=== PATIENT | male | born 1985 | race Caucasian/White ===

== ENCOUNTER 2016-07-24 13:39 | Emergency (ER) | payer OTHER ==
[~2016-07-24] VITALS: Wt 79.0 kg
[~2016-07-24 13:39] MED LIST: ALBU8.5H3 INH; AZIT250T94 PO; CODE118S PO; PRED20TA PO
[2016-07-24] MEDS ORDERED: IBUP800T25 PO (14:22)
--- NOTE | 2016-07-24 14:22 | ERD ---
ER Documentation Chief Complaint Date/Time DATE: 07/24/16 TIME: 14:18 Chief Complaint R ANKLE PAIN SINCE YESTERDAY HPI 30-year-old male who presents with right ankle injury. He states that he was at a concert yesterday jumping up and down. He has an inversion injury. The patient now describes pain and swelling just inferior to the lateral malleolus of the right ankle. Pain is moderate, throbbing, worse with ambulation. He has not given himself any pain medication including no Tylenol no Motrin. ROS All systems reviewed and are negative except as per history of present illness. Medications Home Meds Active Scripts Ibuprofen* (Motrin*) 800 Mg Tab, 800 MG PO Q6H Y for PAIN AND OR ELEVATED TEMP, #30 TAB Prov:ROSI GROSS MD 07/24/16 Albuterol Sulfate* (Proair HFA*) 8.5 Gm Hfa.aer.ad, 2 PUFF INH Q4, #1 INHALER Prov:RIDGE CONNER DO 06/14/15 Azithromycin* (Zithromax*) 250 Mg Tablet, 250 MG PO .ZPACK DIRECTED, #6 TAB TAKE 500 MG (2 TABS) THE FIRST DAY THEN 250 MG (1 TAB) DAYS 2-5 Prov:RIDGE CONNER DO 06/14/15 Promethazine w/Codeine (Phenergan w/Codeine Syrup) 5 Ml Syrup, 5 ML PO Q6 Y for COUGH, #120 ML Prov:RIDGE CONNER DO 06/14/15 Prednisone* (Prednisone*) 20 Mg Tab, 40 MG PO DAILY for 4 Days, TAB Prov:RIDGE CONNER DO 06/14/15 Allergies Allergies: Coded Allergies: No Known Allergy (Unverified , 06/14/15) PMhx/Soc History of Surgery: No Anesthesia Reaction: No Hx Neurological Disorder: No Hx Respiratory Disorders: No Hx Cardiac Disorders: No Hx Psychiatric Problems: No Hx Miscellaneous Medical Probl: No Hx Alcohol Use: No Hx Substance Use: No Hx Tobacco Use: No FmHx Family History: No diabetes Physical Exam Vitals Vital Signs Date Time Temp Pulse Resp B/P Pulse Ox O2 Delivery O2 Flow Rate FiO2 07/24/16 13:42 98.0 110 18 126/71 99 Physical Exam General: Well developed, well nourished, no acute distress Head: Normocephalic, atraumatic. Eyes: EOM intact ENT: Moist mucous membranes Neck: Full ROM Respiratory: No respiratory distress Cardiovascular: Good capillary refil Abdominal: Nondistended : Deferred MSK: Soft tissue swelling just inferior to the lateral malleolus on the right lower extremity. The patient has no ligamentous instability, no significant bony tenderness. No tenderness of the midfoot or the base of the fifth metatarsal. 2+ dorsalis pedis and posterior tibial pulses. Neurologic: Alert and oriented, moving all extremities, normal speech, steady gait Skin: No rash Psych: Normal mood Results 24 hrs Current Medications Medications (Trade) Dose Ordered Sig/Niels Route PRN Reason Start Time Stop Time Status Last Admin Dose Admin Ibuprofen (Motrin) 800 mg ONCE ONCE PO 07/24/16 14:30 07/24/16 14:31 DC 07/24/16 14:05 Procedures/MDM EKG, MONITORS, & DIAGNOSTIC IMAGING: X-ray right ankle: I reviewed and interpreted multiple views of the x-ray Bones: No evidence of acute fracture dislocation or subluxation Soft tissue: No evidence of foreign body PROCEDURES: Splint Application Note: Splint type: Magdi wrap Extremity: Right ankle Indication: Ankle sprain The patient was consented at bedside prior to splint application and states understanding of risks, benefits, and alternatives. The patient was neurovascularly intact prior to and status post application of the splint. The patient tolerated the procedure well and there were no complications. MEDICAL DECISION MAKING: The patient presents with signs and symptoms very consistent with acute sprain of the right anterior talofibular ligament. No significant ligamentous instability. Low concern for fracture however the patient requires and is requesting x-ray imaging. I believe it is reasonable. Patient has no evidence of foot fracture. ER COURSE: The patient was given Motrin. Magdi wrap provided. Crutches provided. Weightbearing as tolerated. Rest, ice, elevation, compression advised for the patient. Weightbearing as tolerated. Patient can be referred to primary care physician. X-ray imaging shows no fracture. I kept the patient and/or family informed of laboratory and diagnostic imaging results throughout the emergency room course. DISPOSITION PLAN: We discussed follow up with the patient's primary care doctor within 24 to 48 hours as needed. We also discussed return to the emergency room for worsening symptoms or worsening condition. Outpatient referral: Orthopedic surgery Discharge Medications: Motrin Departure Diagnosis: Primary Impression: Sprain of anterior talofibular ligament of right ankle Encounter type: initial encounter Qualified Code: S93.491A - Sprain of anterior talofibular ligament of right ankle, initial encounter Condition: Stable ROSI GROSS MD Jul 24, 2016 14:22
[2016-07-24] MEDS ORDERED: IBUPROFEN 800 MG TAB PO ONE (14:30)
--- NOTE | 2016-07-24 14:56 | RADRPT ---
PROCEDURE: XR Ankle. CLINICAL INDICATION: Right ankle pain TECHNIQUE: 3 views of the right ankle were performed. COMPARISON: None. FINDINGS: There is no acute fracture. Alignment is normal. Joint spaces are preserved. Moderate lateral soft tissue swelling is noted. IMPRESSION: 1. No radiographic evidence of acute osseous abnormality. 2. Moderate lateral soft tissue swelling over the distal fibula. RPTAT: UU .Keyshawn Denis MD, MD Date Time Electronically viewed and signed by .Keyshawn Denis MD, on 07/24/2016 14:56 .K/
== END 2016-07-24 15:12 | disposition home or self-care (01) ==
LOC: FTE 13:39
DX: S93.491A Sprain of other ligament of right ankle, initial encounter (principal); X50.9XXA Other and unspecified overexertion or strenuous movements or postures, initial encounter; Y92.9 Unspecified place or not applicable
CPT/HCPCS: 73610; Z7502; Z7610